=== PATIENT | female | born 1940 | race Caucasian/White ===

== ENCOUNTER 2016-08-26 07:46 | Day surgery (SDC) | payer MEDICARE, OTHER ==
--- NOTE | ~2016-08-26 | EGD ---
EGD REPORT [facility] [address] [place] [place] [id number] NAME: MADELINE JACINTO : 40 STATUS : REG [facility] PAT#: [id number] AGE: 76 ADM/REG DATE : 08/26/16 MR#: [id number] REPORT SERV DATE: 08/26/16 DICTATED BY: JANEY HENSLEY DATE: 08/26/16 REPORT STATUS : Draft TRANSCRIBED BY: [employer] DATE: 08/26/16 [facility] Center Patient Name: Madeline Jacinto Date of : 1940 Attending MD: JANEY HENSLEY MD Procedure Date No Time: 08/26/2016 Procedure: Colonoscopy Indications: Screening for colorectal malignant neoplasm Referring MD: JESSICA MIRELES MD Medicines: as per anesthesia Complications: No immediate complications. Procedure: Pre-Anesthesia Assessment: - ASA Grade Assessment: II - A patient with mild systemic disease. After I obtained informed consent, the scope was passed under direct vision. Throughout the procedure, the patient's blood pressure, pulse, and oxygen saturations were monitored continuously. The PCF [id number] was introduced through the anus and advanced to the cecum, identified by appendiceal orifice and ileocecal valve. The colonoscopy was somewhat difficult due to significant looping and a tortuous colon. The patient tolerated the procedure. The quality of the bowel preparation was adequate to identify polyps. Findings: The perianal and digital rectal examinations were normal. The colon (entire examined portion) appeared normal. Impression: - The entire examined colon is normal. Recommendation: - Continue present medications. Procedure Code(s): --- Professional --- 74701, Colonoscopy, flexible, proximal to splenic flexure; diagnostic, with or without collection of specimen(s) by brushing or washing, with or without colon decompression (separate procedure) Diagnosis Code(s): --- Professional --- Z12.11, Encounter for screening for malignant neoplasm of colon CPT copyright 2013 [employer]. All rights reserved. EGD REPORT [facility] [address] [facility] [place]. [id number] NAME: MADELINE JACINTO : 40 STATUS : REG [facility] PAT#: [id number] AGE: 76 ADM/REG DATE : 08/26/16 MR#: [id number] REPORT SERV DATE: 08/26/16 DICTATED BY: JANEY HENSLEY. DATE: 08/26/16 REPORT STATUS : Draft TRANSCRIBED BY: [employer] DATE: 08/26/16 The codes documented in this report are preliminary and upon child welfare director review may be revised to meet current compliance requirements. JANEY HENSLEY MD 08/26/2016 10:23 AM This report has been signed electronically. Number of Addenda: 0 Note Initiated On: 08/26/2016 9:41 AM Scope Withdrawal Time 0 hours 6 minutes 1 second [id number] [place] [id number]
[~2016-08-26 07:46] MED LIST: FOLIC ACID800 MCG PO; MOBIC7.5 PO; NORCO1 TAB; PLAQ200B PO; SAS500; VITAMIN D31000 UNIT PO; VITC500 PO; ZYRTEC ALLGY10 MG PO
== END 2016-08-26 23:59 | disposition home health service (06) ==
LOC: DMU 07:46
PROVIDERS: Internal Medicine Gastroenterology
PROC: 0DJD8ZZ Inspection of Lower Intestinal Tract, Via Natural or Artificial Opening Endoscopic (ICD-10-PCS; principal; 2016-08-26 09:00)
DX: Z12.11 Encounter for screening for malignant neoplasm of colon (principal); M06.9 Rheumatoid arthritis, unspecified; Z90.710 Acquired absence of both cervix and uterus; Z98.890 Other specified postprocedural states